=== PATIENT | female | born 1960 | race Caucasian/White ===

== ENCOUNTER 2018-09-06 12:17 | Day surgery (SDC) | payer OTHER ==
[2018-09-06] MEDS: Sodium Chloride 0.9% 10 ML Syringe FLUSH PRN (10:47)
--- NOTE | 2018-09-06 11:54 | CR ---
INDICATION: Injury, slipped on ice, falling onto left knee. LEFT KNEE: Three views of the left knee were obtained. The AP view is limited due to the patients inability to straighten her knee. No comparisons were available. There is a transverse fracture through the patella with wide separation of the fracture fragments of approximately 7 cm. No other definite bone or joint abnormality was identified. Report was given to Dr. Ornelas in person immediately after the images were available on 09/06/18. REBECCA
[~2018-09-06 12:17] MED LIST: Morphine 2 MG/ML Syringe IVPUSH ONE; Morphine 2 MG/ML Syringe IVPUSH PRN
[2018-09-06] MEDS ORDERED: Midazolam 1 MG/ML 2 ML SDV IV ONE ×2 (12:18)
[2018-09-06] MEDS ORDERED: Lidocaine 1% 20 ML MDV INJECT ONE (12:18)
[2018-09-06] MEDS ORDERED: Ketorolac 30 MG/ML SDV IVPUSH ONE (12:18)
[2018-09-06] MEDS ORDERED: Ropivacaine 0.5% 5 MG/ML 30 ML SDV EPIDUR ONE (12:18)
[2018-09-06] MEDS ORDERED: Ondansetron 4 MG/2 ML SDV IVPUSH ONE (12:18)
[2018-09-06] MEDS ORDERED: ePHEDrine 50 MG/ML SDV IV ONE (12:18)
[2018-09-06] MEDS ORDERED: Lactated Ringers 1,000 ML IV ONE (12:18)
[2018-09-06] MEDS ORDERED: fentaNYL 100 MCG/2 ML SDV IV ONE ×2 (12:18)
[2018-09-06] MEDS ORDERED: Propofol 200 MG/20 ML SDV IV ONE (12:18)
[2018-09-06] MEDS ORDERED: Dexamethasone 4 MG/ML 5 ML MDV IVPUSH ONE (12:18)
--- NOTE | 2018-09-06 12:20 | PCM.HP ---
H&P History of Present Illness - General Date of Service: 09/06/18 Admit Problem/Dx: left patella fracture, closed, initial visit Source of Information: Patient, Family History Limitations: Reports: No Limitations - History of Present Illness Onset of Symptoms: Reports: Today, Sudden Symptom Onset Date: 09/06/18 Duration of Symptoms: Reports: Hour(s): Location: Reports: Lower Extremity, Left Quality: Reports: Stabbing, Throbbing Severity: Severe Improves with: Reports: Immobilization Worsens with: Reports: Movement Left Knee Pain Score (Numeric/FACES): 8 - Related Data Allergies/Adverse Reactions: Allergies Allergy/AdvReac Type Severity Reaction Status Date / Time No Known Allergies Allergy Verified 09/06/18 10:27 Home Medications: Home Meds Citalopram Hydrobromide [Celexa] 40 mg PO DAILY 09/06/18 [History] Multivitamin [Multivitamins] 1 tab PO DAILY 09/06/18 [History] H&P Review of Systems - Review of Systems: Review Of Systems: See Below General: Reports: No Symptoms HEENT: Reports: No Symptoms Pulmonary: Reports: No Symptoms Cardiovascular: Reports: No Symptoms Gastrointestinal: Reports: No Symptoms Genitourinary: Reports: No Symptoms Musculoskeletal: Reports: Leg Pain, Joint Pain, Joint Swelling Skin: Reports: No Symptoms Psychiatric: Reports: No Symptoms Neurological: Reports: No Symptoms Hematologic/Lymphatic: Reports: No Symptoms Immunologic: Reports: No Symptoms Exam - Exam Exam: See Below - Vital Signs Vital Signs: Last Vital Signs Temp 98.2 F 09/06/18 10:20 Pulse 71 09/06/18 10:43 Resp 22 H 09/06/18 10:43 BP 117/61 09/06/18 10:43 Pulse Ox 99 09/06/18 10:43 - Exam General: Alert, Oriented, Cooperative, Severe Distress HEENT: PERRLA, Hearing Intact, Mucosa Moist & [place], Pupils Equal, Pupils Reactive Neck: Supple, Trachea Midline Lungs: Clear to Auscultation, Normal Respiratory Effort Cardiovascular: Regular Rate, Regular Rhythm GI/Abdominal Exam: No Distention Peripheral Pulses: 2+: Dorsalis Pedis (L) Skin: Warm, Dry, Intact Neuro Extensive - Mental Status: Alert, Oriented x3, Normal Mood/Affect Psychiatric: Alert, Normal Affect, Normal Mood - Problem List (1) Fracture of patella, left, closed SNOMED Code(s): 95620957 ICD Code: S82.002A - UNSP FRACTURE OF LEFT PATELLA, INIT FOR CLOS FX Status : Acute Current Visit: Yes Qualifiers: Encounter type: initial encounter Fracture morphology: transverse Fracture alignment: displaced Qualified Code(s): S82.032A - Displaced transverse fracture of left patella, initial encounter for closed fracture Problem List Initiated/Reviewed/Updated: Yes Orders Last 24hrs: Active Orders 24 hr Category Date Time Status EKG Documentation Completion [RC] ASDIRECTED Care 09/06/18 11:51 Active EKG Documentation Completion [RC] ASDIRECTED Care 09/06/18 11:51 Active EKG Documentation Completion [RC] ROUTINE Care 09/06/18 11:51 Active Chest 2V [CR] Routine Exams 09/06/18 11:51 Ordered CBC WITH AUTO DIFF [HEME] Routine Lab 09/06/18 11:51 Ordered COMPREHENSIVE METABOLIC PN,CMP [CHEM] Routine Lab 09/06/18 11:51 Ordered TYPE AND SCREEN [BBK] Routine Lab 09/06/18 11:51 Ordered Morphine Med 09/06/18 11:51 Active 2 mg IVPUSH Q2H PRN Sodium Chloride 0.9% [Saline Flush] Med 09/06/18 10:46 Active 10 ml FLUSH ASDIRECTED PRN Saline Lock Insert [OM.PC] Routine Oth 09/06/18 10:46 Ordered EKG 12 Lead [EK] Routine Ther 09/06/18 11:51 Ordered Medication Orders Morphine Sulfate (Morphine) 2 mg IVPUSH Q2H PRN PRN Reason: Pain Sodium Chloride (Saline Flush) 10 ml FLUSH ASDIRECTED PRN PRN Reason: Keep Vein Open Last Admin: 09/06/18 10:47 Dose: 10 ml Assessment/Plan Comment:: Assessment: 58-year-old female with acute closed transverse patella fracture Plan: I discussed the risks and benefits of open reduction and internal fixation with both the patient and her . I explained that this would be a 12 week healing process. She will be in a knee immobilizer after the surgery and then switch to a hinged knee brace. We will start unlocking the brace at approximately 3 weeks after surgery. She can be weightbearing as tolerated in full extension. We will plan on using mesh as well as anchors and suture rather than wire. Follow-up will be in 2 weeks in clinic.
[2018-09-06] MEDS ORDERED: Sodium Chloride 0.9% 10 ML Syringe FLUSH PRN (12:47)
[2018-09-06] MEDS ORDERED: ceFAZolin 1 GM in Sodium Chloride 0.9% 50 ML IV ONE (12:47)
[2018-09-06] MEDS ORDERED: ceFAZolin 1 GM Vial IVPUSH ONE (13:00)
[2018-09-06] MEDS ORDERED: Lactated Ringers 1,000 ML IV SCH (13:00)
--- NOTE | 2018-09-06 14:15 | PCM.SN ---
- Free Text/Narrative Note: ANESTHESIA PAIN SERVICE Date: 09/06/2018 Time: 1217 to 1228 Preoperative Dx: Left Fractured Patella Postoperative Rx: ORIF Left Patella Fracture Procedure: Left Adductor Canal Block with Ultrasound [U/S] Guidance The surgeon requested preoperative pain control and post-operative pain control for this patient. The patient was seen in the ER with intractable pain due to her Fx left patella. Risks and Benefits were discussed with her. Consent was obtained. Her pain was a 10 out of 10 at this time. She is very upset and crying. Monitors: SpO2 and HR plus O2 per nasal cannula at 2L/M. Sedation: Versed 2 mg's and Fentanyl 100 mcg's IV with good results. She was easily aroused throughout this procedure. Using U/S, I located the left Femoral Artery and the Sartorius Muscle. I prepped the area with Chlora-Prep and allowed to dry. Using aseptic technique, I localized the needle insertion site with 2 ml's of 1% Lidocaine plain using a 27 G needle. I then passed a [employer] Ultra 360 Insulated Echogenic 20 G 4 " needle under direct U/S visualization X 1 attempt with good placement of the needle. A total of 20 ml's .5% Naropin in divided doses was given with multiple negative aspirations for blood done. The patient had no complaints and tolerated this procedure well. Her pain was now very well controlled [1-210]. No printed picture was obtained due to printer problems. Thank you for using this service. AMIE Vela CRNA
[2018-09-06] MEDS ORDERED: Vancomycin 1 GM SDV ONE (14:19)
[2018-09-06] MEDS ORDERED: Bupivacaine 0.5%/EPINEPHrine 1:200,000 50 ML MDV INJECT ONE (14:36)
--- NOTE | 2018-09-06 14:46 | PCM.OPNOTE ---
- General Post-Op/Procedure Note Date of Surgery/Procedure: 09/06/18 Operative Procedure(s): orif left patella Pre Op Diagnosis: left patella fracture, closed, transverse Post-Op Diagnosis: same Anesthesia Technique: Regional Block Primary Surgeon: Altaf Ornelas Anesthesia Provider: Estephania Quarles Clerk Of Court: Makayla Silva EBL in mLs: 100 Complications: none Condition: Good
--- NOTE | 2018-09-06 14:52 | CR ---
INDICATION: Preop chest, patellar fracture. CHEST: PA and lateral views of the chest revealed the heart and mediastinum to be unremarkable. A mild dextroconvex scoliosis of the mid thoracic spine is noted. An active infiltrate or effusion was not identified. IMPRESSION: No acute process. MTDD
--- NOTE | 2018-09-06 14:54 | CR ---
INDICATION: Left hip pain, post trauma. PELVIS: A single frontal view of the pelvis was obtained 09/06/18 - no comparisons. Sacroiliac joints and hip joints appear to be fairly intact with no significant apparent degenerative change, fracture, or dislocation identified. Overall bone density appeared to be normal. IMPRESSION: Normal appearing pelvis. MTDD
[2018-09-06] MEDS ORDERED: Ondansetron 4 MG/2 ML SDV IVPUSH PRN (15:07)
[2018-09-06] MEDS ORDERED: Sennosides 8.6 MG Tab PO PRN (15:07)
[2018-09-06] MEDS ORDERED: Docusate Sodium 100 MG Cap PO PRN (15:07)
[2018-09-06] MEDS ORDERED: Acetaminophen/oxyCODONE 325-5 MG Tab PO PRN (15:07)
[2018-09-06] MEDS ORDERED: Magnesium Hydroxide 400 MG/5 ML Susp 30 ML Cup PO PRN (15:07)
[2018-09-06] MEDS ORDERED: Zolpidem 5 MG Tab PO PRN (15:07)
[2018-09-06] MEDS ORDERED: ceFAZolin 1 GM in Sodium Chloride 0.9% 50 ML IV SCH (17:00)
[2018-09-06] MEDS: ceFAZolin 1 GM Vial IV SCH (18:07)
[2018-09-06] MEDS ORDERED: diazePAM 5 MG/ML MDV IV PRN (21:30)
[2018-09-07] MEDS: ceFAZolin 1 GM Vial IV SCH ×2 (00:03→08:26)
[2018-09-07] MEDS ORDERED: Pantoprazole 40 MG Tab.CR PO SCH (06:00)
--- NOTE | 2018-09-07 08:25 | OR ---
DATE OF OPERATION: 09/06/2018 SURGEON: Altaf Ornelas DO PREOPERATIVE DIAGNOSIS: Left patella fracture, closed, transverse. POSTOPERATIVE DIAGNOSIS: Left patella fracture, closed, transverse. PROCEDURE: Open reduction and internal fixation, left patella fracture. HOUSEHOLD APPLIANCE REPAIRER: Makayla Silva NP Nurse practitioner, Makayla Silva NP, played an essential role in assisting in this case, helping to position the patient, retract structures as needed, as well as suturing and cutting sutures as indicated. Her presence improved patient's safety and decreased operative time. ANESTHESIA: Regional block plus conscious sedation. FLUID: Lactated Ringer's solution. ESTIMATED BLOOD LOSS: 100 mL. COMPLICATIONS: None. SPECIMEN: None. DISCHARGE DISPOSITION: Stable to PACU. HISTORY AND INDICATIONS FOR PROCEDURE: The patient was seen preoperatively in the emergency department area. She was sent over by Dr. Moon. She had fallen while going down a snow bank at her house. She was seen at the ER. We obtained 3 views of the left knee, which showed a transverse patella fracture which was totally displaced. Risks and benefits of the procedure were explained to the patient. Informed consent was obtained. DETAILS OF PROCEDURE: The patient was seen preoperatively by myself and the Anesthesia staff in the preoperative holding area, where the operative site was marked. She had a preoperative adductor block. She was brought to the operative suite by the anesthesia staff, where conscious sedation was administered. A well-padded tourniquet was placed on the left thigh. The left lower extremity was then prepped and draped in a sterile manner. Time-out was called identifying the correct patient, the correct procedure, the correct site, and that antibiotics had been begun within appropriate period of time. An incision was made 3 fingerbreadths proximal to the patella down to the level of the tibial tubercle. The hematoma was encountered and evacuated. This was irrigated out. The edges were cleaned off the patella fracture. Both the medial and lateral retinaculum had large tears throughout them down to the level of the collateral ligaments. After appropriate irrigation, the ends were apposed using bone tenaculums, and 3 K-wires were driven across the patella to hold it together. I then overdrilled with two 2.7 mm cannulated drill holes, and then applied 2 screws and then took films. One of the screws appeared to be slightly proud on the inside of the joint, so this was removed, and then we placed another one, which was appropriately placed. I then removed the K-wires outside of the cannulated screws, and then used a Beath needle to run Ethibond through the cannulated screws and then tied these. I then placed a small mesh and then oversewed this with two #5 interrupted Ethibond and then oversewed this with #1 Stratafix. I had also repaired the medial and lateral retinaculum with #1 Stratafix, so that this was closed in a watertight manner. We did apply some Betadine-infused irrigation, as well as some vancomycin powder, and then closed the subcuticular layer with #1 Stratafix, followed by skin bharati, followed by Betadine-soaked irrigation, followed by sterile dressing and an Milo wrap, and then placed her into a knee immobilizer. She was then allowed to awaken from conscious sedation and taken to the PACU in stable condition. /[id number] LA/ROSETTE
[2018-09-07] MEDS: Sodium Chloride 0.9% 10 ML Syringe FLUSH PRN (08:29)
[2018-09-07] MEDS ORDERED: Aspirin 325 MG Tab.EC PO SCH (09:00)
--- NOTE | 2018-09-07 09:06 | PCM.DCSUM1 ---
Discharge Summary - Hospital Course HPI Initial Comments: 58 yo female left patella fx closed transverse Diagnosis: Stroke: No - Discharge Data Discharge Date: 09/07/18 Discharge Disposition: Home, Self-Care 01 Condition: Good - Discharge Diagnosis/Problem(s) (1) Fracture of patella, left, closed SNOMED Code(s): 37859054 ICD Code: S82.002A - UNSP FRACTURE OF LEFT PATELLA, INIT FOR CLOS FX Status : Acute Current Visit: Yes Qualifiers: Encounter type: initial encounter Fracture morphology: transverse Fracture alignment: displaced Qualified Code(s): S82.032A - Displaced transverse fracture of left patella, initial encounter for closed fracture - Patient Summary/Data Operative Procedure(s) Performed: orif left patella Complications: none Consults: Consultations 09/06/18 15:00 OT Evaluation and Treatment [CONS] Routine Please Evaluate and Treat. OT Reason for Consult: Strengthening This query below is only for informational purposes and is not editable. Admission Diagnosis/Problem: Open reduction of fracture with internal fixation PT Evaluation and Treatment [CONS] Routine Please Evaluate and Treat. PT Reason for Consult: Strengthening This query below is only for informational purposes and is not editable. Admission Diagnosis/Problem: Open reduction of fracture with internal fixation 09/06/18 15:07 Respiratory Care Assess and Treatment [CONS] Routine Comment: Physician Instructions: Post-Op Pneumonia Prevention - Patient Instructions Diet: Usual Diet as Tolerated Activity: Apply Ice, Full Weight Bearing, No Strenuous Activities Driving: May Drive Today Showering/Bathing: May Shower in 3 Days Wound/Incision Care: Keep Operative Site/Wound Site Clean and Dry, Change Dressing Daily Wound/Incision, Other: change dressing wednesday, keep leg extended at all times Notify Provider of: Fever, Increased Pain, Swelling and Redness, Drainage, Nausea and/or Vomiting - Discharge Plan *PRESCRIPTION DRUG MONITORING PROGRAM REVIEWED*: Not Applicable *COPY OF PRESCRIPTION DRUG MONITORING REPORT IN PATIENT ERIK: Not Applicable Prescriptions/Med Rec: Acetaminophen with Codeine [Tylenol with Codeine #3 Tablet] 1 each PO Q6HR PRN # 56 tablet PRN Reason: Pain Aspirin [Ecotrin] 325 mg PO DAILY #30 tab.ec Home Medications: Home Meds Citalopram Hydrobromide [Celexa] 40 mg PO DAILY 09/06/18 [History] Multivitamin [Multivitamins] 1 tab PO DAILY 09/06/18 [History] Acetaminophen with Codeine [Tylenol with Codeine #3 Tablet] 1 each PO Q6HR PRN # 56 tablet 09/07/18 [Rx] Aspirin [Ecotrin] 325 mg PO DAILY #30 tab.ec 09/07/18 [Rx] Patient Handouts: Preventing Problems After Surgery - Discharge Summary/Plan Comment DC Time >30 min.: No - General Info Date of Service: 09/07/18 Admission Dx/Problem (Free Text: left patella fracture, closed, initial visit Functional Status: Reports: Pain Controlled - Review of Systems General: Reports: No Symptoms HEENT: Reports: No Symptoms Pulmonary: Reports: No Symptoms Cardiovascular: Reports: No Symptoms Gastrointestinal: Reports: No Symptoms Genitourinary: Reports: No Symptoms Musculoskeletal: Reports: Leg Pain, Joint Pain Skin: Reports: No Symptoms Neurological: Reports: No Symptoms Psychiatric: Reports: No Symptoms - Patient Data Vitals - Most Recent: Last Vital Signs Temp 97.9 F 09/06/18 20:30 Pulse 98 09/06/18 20:30 Resp 20 09/06/18 20:30 BP 128/63 09/06/18 20:30 Pulse Ox 94 L 09/06/18 20:30 Weight - Most Recent: 170 lb Lab Results - Last 24 hrs: Laboratory Results - last 24 hr 09/06/18 09/06/18 09/06/18 Range/Units 12:06 12:06 12:06 WBC 11.6 (4.5-12.0) X10-3/uL RBC 4.69 (3.23-5.20) x10(6)uL Hgb 13.4 (11.5-15.5) g/dL Hct 39.4 (30.0-51.3) % MCV 84.1 (80-96) fL MCH 28.6 (27.7-33.6) pg MCHC 34.0 (32.2-35.4) g/dL RDW 12.5 (11.5-15.5) % Plt Count 242 (125-369) X10(3)uL MPV 8.7 (7.4-10.4) fL Neut % (Auto) 80.5 (46-82) % Lymph % (Auto) 15.3 (13-37) % [place] % (Auto) 3.8 L (4-12) % Eos % (Auto) 0 L (1.0-5.0) % Baso % (Auto) 0 (0-2) % Neut # (Auto) 9.4 H (1.6-8.3) # Lymph # (Auto) 1.8 (0.6-5.0) # [place]ah # (Auto) 0.4 (0.0-1.3) # Eos # (Auto) 0.0 (0.0-0.8) # Baso # (Auto) 0.0 (0.0-0.2) # Sodium 137 (135-145) mmol/L Potassium 3.7 (3.5-5.3) mmol/L Chloride 102 (100-110) mmol/L Carbon Dioxide 25 (21-32) mmol/L BUN 17 (7-18) mg/dL Creatinine 0.8 (0.55-1.02) mg/dL Est Cr Clr Drug Dosing TNP Estimated GFR (MDRD) > 60 (>60) BUN/Creatinine Ratio 21.3 H (9-20) Glucose 113 (80-116) mg/dL Calcium 8.9 (8.6-10.2) mg/dL Total Bilirubin 0.4 (0.1-1.3) mg/dL AST 27 H (5-25) IU/L ALT 27 (12-36) U/L Alkaline Phosphatase 85 (56-112) IU/L Total Protein 7.1 (6.0-8.0) g/dL Albumin 3.8 (3.5-5.2) g/dL Globulin 3.3 g/dL Albumin/Globulin Ratio 1.2 Blood Type O POSITIVE Gel Antibody Screen Negative Med Orders - Current: Current Medications Aspirin (Ecotrin) 325 mg PO DAILY [facility] Last Admin: 09/07/18 08:26 Dose: 325 mg Diazepam (Valium) 2 mg IV ONETIME PRN PRN Reason: Anxiety Last Admin: 09/07/18 00:04 Dose: 2 mg Docusate Sodium (Colace) 100 mg PO BID PRN PRN Reason: Constipation Last Admin: 09/07/18 07:24 Dose: 100 mg Lactated Ringer's (Ringers, Lactated) 1,000 mls @ 125 mls/hr IV ASDIRECTED [facility] Last Admin: 09/06/18 15:27 Dose: 125 mls/hr Magnesium Hydroxide (Milk Of Magnesia) 30 ml PO BID PRN PRN Reason: Constipation Morphine Sulfate (Morphine) 2 mg IVPUSH Q2H PRN PRN Reason: Pain Ondansetron HCl (Zofran) 8 mg IVPUSH Q8H PRN PRN Reason: Nausea/Vomiting Oxycodone/Acetaminophen (Percocet 325-5 Mg) 2 tab PO Q4H PRN PRN Reason: Pain Last Admin: 09/07/18 02:56 Dose: 2 tab Pantoprazole Sodium (Protonix) 40 mg PO 0600 NAGI Last Admin: 09/07/18 06:09 Dose: 40 mg Senna (Senna) 8.6 mg PO BID PRN PRN Reason: Constipation Sodium Chloride (Saline Flush) 10 ml FLUSH ASDIRECTED PRN PRN Reason: Keep Vein Open Last Admin: 09/07/18 08:29 Dose: 10 ml Sodium Chloride (Saline Flush) 10 ml FLUSH ASDIRECTED PRN PRN Reason: Keep Vein Open Zolpidem Tartrate (Ambien) 5 mg PO BEDTIME PRN PRN Reason: Insomnia Discontinued Medications Bupivacaine HCl/Epinephrine Bitart (Marcaine 0.5%/Epinephrine 1:200,000) 30 ml INJECT .STK-MED ONE Stop: 09/06/18 14:37 Last Admin: 09/06/18 14:36 Dose: 30 ml Cefazolin Sodium (Ancef) 1 gm IVPUSH ONETIME ONE Stop: 09/06/18 13:01 Last Admin: 09/06/18 13:21 Dose: 1 gm Cefazolin Sodium (Ancef) 1 gm IV Q8H NAGI Stop: 09/07/18 09:01 Last Admin: 09/07/18 08:26 Dose: 1 gm Cefazolin Sodium 1 gm/ Sodium (Chloride) 50 mls @ 200 mls/hr IV Q8H [facility] Stop: 09/07/18 09:14 Morphine Sulfate (Morphine) 2 mg IVPUSH ONETIME ONE Stop: 09/06/18 10:28 Last Admin: 09/06/18 10:32 Dose: 2 mg Vancomycin HCl (Vancomycin) 1 gm .XX .STK-MED ONE Stop: 09/06/18 14:20 Last Admin: 09/06/18 14:19 Dose: 1 gm - Exam General: Reports: Alert, Oriented, Cooperative, Mild Distress HEENT: Reports: Pupils Equal, Pupils Reactive, EOMI, Mucous Membr. Moist/[place] Neck: Reports: Supple, Trachea Midline Lungs: Reports: Normal Respiratory Effort GI/Abdominal Exam: No Distention Extremities: No Pedal Edema, Leg Pain, Limited Range of Motion Skin: Reports: Warm, Dry, Intact Wound/Incisions: Reports: Healing Well, Dressing Dry and Intact, No Drainage Neurological: Reports: No New Focal Deficit Psy/Mental Status: Reports: Alert, Normal Affect, Normal Mood Discharge Operative/Procedures - Procedures Performed Operations: orif left patella
[2018-09-07] MEDS ORDERED: Acetaminophen/Codeine 300-30 MG Tab PO ONE (09:43)
--- NOTE | 2018-09-07 13:56 | CR ---
INDICATION: ORIF for fractured patella. C-ARM FLUOROSCOPY IN OR, LESS THAN 1 HOUR: Minimal C-arm fluoroscopy was utilized in ORIF for fractured patella with a dose of 0.206 mGi. 0 minutes registered on the fluoro timer. Two screws are noted fixing the patellar fracture fragments in satisfactory position and alignment with only minimal offset of the inferior fracture fragment anteriorly. No definite complicating process was identified. Overlying skin bharati are noted. IMPRESSION: Satisfactory appearance post ORIF patellar fracture. MTDD
== END 2018-09-07 11:34 | disposition home or self-care (01) ==
LOC: FB.SDS 12:17 → FB.MS 15:34 → FB.SDS 09-07 11:34
PROVIDERS: ATTEND Orthopaedic Surgery
DX: S82.032A Displaced transverse fracture of left patella, initial encounter for closed fracture (principal); X58.XXXA Exposure to other specified factors, initial encounter
CPT/HCPCS: 36415; 71046; 72170; 73562-LT; 76000; 80053; 85025; 86850; 86900; 86901; 93005; A9270-GY; C1713; C1781; J0690; J1100; J1885; J2001; J2250; J2270; J2405; J2704; J2795; J3010; J3370; J3490; J7120

== ENCOUNTER 2018-12-20 20:43 | Emergency (ER) | payer OTHER ==
[2018-12-20] MEDS ORDERED: Erythromycin Base 0.5% Ophth Oint 3.5 GM Tube ONE (20:44)
--- NOTE | 2018-12-20 21:22 | EDM.PDOC ---
ED HPI GENERAL MEDICAL PROBLEM - General Chief Complaint: Eye Problems Stated Complaint: REACTION TO EYE DROPS Time Seen by Provider: 12/20/18 21:00 Source of Information: Reports: Patient, Family History Limitations: Reports: No Limitations - History of Present Illness INITIAL COMMENTS - FREE TEXT/NARRATIVE: Benita comes into [facility] ED with reddened watery eyes over the past 9 hours, a possible exposure to grandkids who were recently managed for pink eye. There is profuse discharge with minor purulence, no macy photophobia, no contact wear or injury. She has been using TMP/PolyB drops this afternoon without benefit. 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 ED EXAM GENERAL W FULL EYE - Physical Exam Exam: See Below Exam Limited By: No Limitations General Appearance: Alert, WD/WN, Mild Distress Eye Exam: Bilateral Eye: Conjunctival Injection, EOMI, Normal Fundi, PERRL Visual Acuity (R) 20/: 20 Visual Acuity (L) 20/: 20 With Correction: No Eyelids: Bilateral: Edema, Erythema Conjunctiva & Sclera: Bilateral: Conjunctival Edema, Discharge, Injected Extraocular Movements: Bilateral: Intact Pupillary Size: Bilateral: 5 mm Pupillary Reaction: Bilateral: Brisk Anterior Chamber: Bilateral: Normal Appearance Posterior Chamber: Bilateral: Normal Funduscopic Ears: Normal External Exam Nose: Normal Inspection Throat/Mouth: Normal Inspection, Normal Oropharynx Head: Normocephalic Neck: Normal Inspection Respiratory/Chest: Lungs Clear Cardiovascular: Regular Rate, Rhythm, No Murmur Course - Vital Signs Text/Narrative:: Following interview, I instilled tetracaine 0.5% gtts which eventually achieved pain relief. Examination appeared consistent with acute conjunctivitis, and I dispensed Erythromycin 0.5% oint qid. Last Recorded V/S: Last Vital Signs Temp 36.9 C 12/20/18 20:45 Pulse 90 12/20/18 20:45 Resp 18 12/20/18 20:45 BP 154/88 H 12/20/18 20:45 Pulse Ox 99 12/20/18 20:45 Departure - Departure Time of Disposition: 21:25 Disposition: Home, Self-Care 01 Condition: Fair Clinical Impression: Conjunctivitis Qualifiers: Conjunctivitis type: acute Acute conjunctivitis type: unspecified Laterality: bilateral Qualified Code(s): H10.33 - Unspecified acute conjunctivitis, bilateral - Discharge Information *PRESCRIPTION DRUG MONITORING PROGRAM REVIEWED*: Not Applicable *COPY OF PRESCRIPTION DRUG MONITORING REPORT IN PATIENT ERIK: Not Applicable Forms: ED Department Discharge - Problem List & Annotations (1) Conjunctivitis SNOMED Code(s): 1652229 Code(s): H10.9 - UNSPECIFIED CONJUNCTIVITIS Status: Acute Annotation/ Comment:: I dispensed Erythromycin oint 0.5% qid as directed, NSAIDs for comfort , cool compresses, and good handwashing. Qualifiers: Conjunctivitis type: acute Acute conjunctivitis type: unspecified Laterality: bilateral Qualified Code(s): H10.33 - Unspecified acute conjunctivitis, bilateral - Assessment/Plan Plan: Follow up with PCP if needed.
== END 2018-12-20 21:46 | disposition home or self-care (01) ==
LOC: FB.ED 20:43
DX: H10.33 Unspecified acute conjunctivitis, bilateral (principal); Z79.899 Other long term (current) drug therapy
CPT/HCPCS: 99282; A9270-GY